=== PATIENT | female | born 1975 | race African-American/Black ===

== ENCOUNTER 2019-01-16 02:58 | Emergency (ER) | payer OTHER ==
[~2019-01-16] VITALS: Ht 154.9 cm; Wt 86.4 kg
[~2019-01-16 02:58] MED LIST: CEFTIN250 M1 PO; NO HOME MEDICATIONS
[2019-01-16 03:07] VITALS: BP 113/70; TEMP 98.6
[2019-01-16] MEDS ORDERED: ASPIRIN 32325 MG/TAB PO (03:12)
[2019-01-16 04:01] LABS: BASO % 0.4 % (0.0-2.0); EOS # 0.3 (0.0-0.7); EOS % 3.9 % (0-4.0); GRAN % 51.3 % (42.2-75.2); HEMOGLOBIN 11.6 g/dl (12.5-16.0); LYMPH # 2.9 (1.2-3.4); LYMPH % 37.4 % (20.0-51.0); MEAN CELL VOLUME 91 fl (80.0-100.0); MEAN CORPUSCULAR HEMOGLOBIN 29 pg (27.0-31.0); MEAN CORPUSCULAR HGB CONC 32 g/dl (33.0-37.0); MEAN PLATELET VOLUME 10.2 fl (7.4-10.4); MONO # 0.5 (0.1-0.6); MONO % 6.6 % (1.7-9.3); PLATELET COUNT 221 K/mm3 (130-400); RED BLOOD COUNT 3.94 M/mm3 (4.10-5.30)
[2019-01-16 04:02] LABS: HEMATOCRIT 35.9 % (37.0-47.0)
[2019-01-16 04:07] LABS: INR 0.9 (0.8-3.0); PROTHROMBIN TIME 10.9 SECONDS (9.7-12.8)
[2019-01-16 04:13] LABS: ALANINE AMINOTRANSFERASE 21 U/L (9-52); ALBUMIN 3.6 gm/dL (3.5-5.0); ALKALINE PHOSPHATASE 64 U/L (50-136); ANION GAP 9 mmol/L (7-16); AST,SGOT 23 U/L (15-37); BILIRUBIN,TOTAL 0.2 mg/dL (0.0-1.0); BLOOD UREA NITROGEN 7 mg/dL (7-17); CARBON DIOXIDE 27 mmol/L (22-30); CHLORIDE 106 mmol/L (98-107); CREATININE, serum 0.51 (0.52-1.25); GLUCOSE 121 mg/dL (74-106); POTASSIUM 3.6 mmol/L (3.4-5.0); SODIUM 141 mmol/L (137-145); TOTAL PROTEIN 7.1 gm/dL (6.4-8.2)
[2019-01-16 04:18] LABS: D-DIMER < 200.00 ng/mLDDu (200-230)
[2019-01-16 04:25] LABS: TROPONIN-I < 0.012 ng/mL (0.000-0.035)
[2019-01-16 04:53] VITALS: PULSE 80
== END 2019-01-16 04:53 | disposition home or self-care (01) ==
LOC: COL.ER 02:58
PROVIDERS: Emergency Medicine
DX: R20.2 Paresthesia of skin (principal); Z98.890 Other specified postprocedural states

== ENCOUNTER → 2022-02-19 | Outpatient (CLI) | payer OTHER ==
[2006-03-04 09:17] VITALS: PULSE 80; TEMP 97.4
[~2022-02-19] MED LIST changes: +ASPIRIN 32325 MG/TAB PO
[2022-02-19 17:06] LABS: BASO % 0.3 % (0.0-2.0); EOS # 0.1 K/mm3 (0.0-0.7); EOS % 1.4 % (0.0-4.0); GRAN # 3.1 K/mm3 (1.4-6.5); GRAN % 47.9 % (42.2-75.2); HEMATOCRIT 41.3 % (37.0-47.0); HEMOGLOBIN 13.1 g/dl (12.5-16.0); LYMPH # 2.9 K/mm3 (1.2-3.4); LYMPH % 44.2 % (20.0-51.0); MEAN CELL VOLUME 92 fl (80.0-100.0); MEAN CORPUSCULAR HEMOGLOBIN 29 pg (27-31); MEAN CORPUSCULAR HGB CONC 32 g/dl (33.0-37.0); MEAN PLATELET VOLUME 10.4 fl (7.4-10.4); MONO # 0.4 K/mm3 (0.1-0.6); PLATELET COUNT 294 K/mm3 (130-400); RED BLOOD COUNT 4.51 M/mm3 (4.10-5.30); REDCELL DISTRIBUTION WIDTH-CV 13.2 % (11.5-14.5)
[2022-02-19 17:26] LABS: ANION GAP 9 mmol/L (7-16); BLOOD UREA NITROGEN 10 mg/dL (7-19); CALCIUM 9.7 mg/dL (8.4-10.2); CARBON DIOXIDE 28 mmol/L (22-29); CHLORIDE 103 mmol/L (98-107); CREATININE, serum 0.74 mg/dL (0.57-1.11); GLUCOSE 91 mg/dL (70-99); SODIUM 140 mmol/L (136-145); TROPONIN-I < 0.010 ng/mL (0.00-0.033)
== END ==
LOC: ZCOL.LAB 14:50
PROVIDERS: Nurse Practitioner Family
DX: R00.2 Palpitations (principal); R06.02 Shortness of breath; R07.89 Other chest pain; R53.83 Other fatigue